=== PATIENT | female | born 1985 | race Caucasian/White ===

== ENCOUNTER → 2017-01-08 | Outpatient (CLI) | payer BC ==
[~2017-01-08] MED LIST: ACET-1311 PO; BCPILLS PO; PRENTAB26 PO
--- NOTE | 2017-01-08 15:34 | DIAGNOSTIC IMAGING REPORT ---
KUB CLINICAL HISTORY: NEPHROLITHIASIS nephrocalcinosis COMPARISON STUDY: 05/31/2015 FINDINGS: Kidneys are of severe by overlying fecal material. Bowel pattern is nonobstructive. Possible punctate calcifications appear pole left kidney. IMPRESSION: Near nonvisualization of the kidneys due to overlying bowel content. 2. Punctate calcification overlying superior pole left kidney. 3. Otherwise negative study Electronically signed by: Rajan Rodriguez M.D. 01/08/2017 3:33 PM Dictated Date/Time: 01/08/2017 3:32 PM
== END | disposition home or self-care (01) ==
LOC: C.RADBC 15:09
PROVIDERS: ATTEND Nurse Practitioner Family
DX: N20.0 Calculus of kidney (principal)

== ENCOUNTER 2017-01-27 15:55 | Emergency (ER) | payer BC ==
[~2017-01-27] VITALS: Ht 162.6 cm; Wt 62.4 kg
[~2017-01-27 15:55] MED LIST changes: -ACET-1311 PO; -BCPILLS PO
[2017-01-27 15:59] VITALS: TEMP 36.6; Ht 162.6 cm; Wt 62.4 kg
[2017-01-27] MEDS ORDERED: BCPILLS PO (16:06)
[2017-01-27] MEDS ORDERED: ACET-1311 PO (16:06)
[2017-01-27] MEDS ORDERED: LORAZEPAM 2 MG/ML 1 ML VIAL IV STA (16:25)
[2017-01-27] MEDS ORDERED: SODIUM CHLORIDE 0.9% 1000ML 1,000 ML IV ONE (16:30)
[2017-01-27 16:44] LABS: BASO % 0.3 %; BASO ABS # 0.02 K/uL (0-0.2); COMPLETE YES; EOS % 1.2 %; HEMATOCRIT 47.9 % (37-47); IG% 0.2 %; LYMPH % 31.8 %; LYMPH ABS # 1.88 K/uL (1.2-3.4); MEAN CORPUSCULAR HGB CONC 34.4 g/dl (32-36); MONO % 7.3 %; NEUT % 59.2 %; PLATELET COUNT 325 K/uL (130-400); RED BLOOD COUNT 5.32 M/uL (4.2-5.4); WHITE BLOOD COUNT 5.92 K/uL (4.8-10.8)
[2017-01-27 17:00] LABS: BUN/CREATININE RATIO 15.2 (10-20); CALCIUM 9.2 mg/dl (8.5-10.1); CREATININE 0.9 mg/dl (0.60-1.20); MAGNESIUM 2.2 mg/dl (1.8-2.4); POTASSIUM 3.9 mmol/L (3.5-5.1)
[2017-01-27 17:09] LABS: URINE APPEARANCE CLEAR (CLEAR); URINE BILIRUBIN NEG (NEG); URINE COLOR YELLOW; URINE NITRITE NEG (NEG); URINE SPECIFIC GRAVITY 1.025 (1.000-1.030); UROBILINOGEN NEG (NEG); ZZUR CULT IF INDIC CLEAN CATCH NO
[2017-01-27 17:10] LABS: ALB/GLOB RATIO 1.1 (0.9-2); THYROID STIMULATING HORMONE 2.26 uIu/ml (0.300-4.500)
[2017-01-27 17:13] LABS: MANUAL MICROSCOPIC REQUIRED? NO; REVIEW REQ? NO
--- NOTE | 2017-01-27 17:50 | DIAGNOSTIC IMAGING REPORT ---
MRA OF THE INTRACRANIAL CIRCULATION WITHOUT CONTRAST CLINICAL HISTORY: Atypical migraine. Neurologic symptoms. COMPARISON STUDY: None. TECHNIQUE: Utilizing a 1.5 Miriam magnet and 3-D [id number] technique, unenhanced MRA of the intracranial circulation was obtained. FINDINGS: The bilateral M1, M2, A1 and A2 segments are patent. There is no abrupt vessel cut off. The posterior circulation is intact. There is no intracranial aneurysm. No significant stenosis is identified within the intracranial vessels. IMPRESSION: Normal MRA of the intracranial circulation. Electronically signed by: Denis Ochoa M.D. 01/27/2017 5:49 PM Dictated Date/Time: 01/27/2017 5:47 PM
[2017-01-27] MEDS ORDERED: GADAVIST IV PRN (18:00)
[2017-01-27 18:11] LABS: LYME DISEASE AB IGG NEG (NEG); LYME DISEASE AB IGM NEG (NEG)
--- NOTE | 2017-01-27 18:31 | DIAGNOSTIC IMAGING REPORT ---
MRI OF THE BRAIN WITHOUT AND WITH IV CONTRAST CLINICAL HISTORY: Atypical migraine. Neurologic symptoms. COMPARISON STUDY: No previous studies for comparison. TECHNIQUE: Utilizing a 1.5 Miriam magnet and dedicated coil, multiplanar, multiecho imaging of the brain was performed pre and postcontrast administration. IV administration of 6 mL of Gadavist contrast was uneventful. FINDINGS: This exam is mildly compromised by motion artifact. There are no areas of restricted diffusion. No acute intracranial hemorrhage, midline shift or mass effect is present. Brain volume is normal. Ventricular system is normal. Basilar cisterns are patent. There are no extra-axial collections. Flow-voids for the major intracranial vessels are present. There are no intracranial masses or areas of pathologic enhancement. No areas of signal abnormality are identified. Calvarial signal is maintained. Orbits are unremarkable. There is minimal mucosal thickening of the ethmoid sinuses. There is no fluid within the mastoid air cells. IMPRESSION: Normal MRI of the brain. Electronically signed by: Denis Ochoa M.D. 01/27/2017 6:29 PM Dictated Date/Time: 01/27/2017 6:14 PM
[2017-01-27 19:07] VITALS: BP 103/65; PULSE 91; O2SAT 98
--- NOTE | 2017-01-27 19:35 | EMERGENCY ROOM VISIT NOTE ---
History First contact with patient: 16:06 Chief Complaint: HEADACHE Stated Complaint: PAIN IN THE BACK OF THE HEAD; FAINTING SPELLS History of Present Illness The patient is a 32 year old female who presents to the Emergency Room with complaints of episodes of posterior head pain and near-syncope off-and-on for the past 3 months. The patient is usually healthy without chronic medical disease. She is very active and works out several days a week and is a schoolteacher by profession. The patient describes on pulsatile posterior head pain radiating to the top of her head. These episodes often last for a few moments before resolving, but has been increasing in frequency. She has had a few episodes where she has nonspecific numbness and tingling into her hands. There have not been vision changes. Additionally the patient states that she has had near syncopal episodes, and at times will feel like she is "drunk". These episodes do not appear to improve or worsen with time of day, food, or activity. She never has chest pain, chest tightness, shortness of breath, or palpitations with this. She reports a very old history of epilepsy that resolved before the age of 10. She has not had any neurologic issues since that time. The patient rates her current discomfort a 4/10. She was able to exercise vigorously this morning without difficulty, but began to have another episode about 2 hours prior to arrival. Review of Systems More than 10 systems were reviewed and otherwise negative with the exception of history of present illness. Past Medical/Surgical History Surgical Problems: (1) H/O wisdom tooth extraction Family History Cancer Diabetes mellitus Hypertension Lung disease Seizures Social History Smoking Status: Never Smoker Marital Status: Housing Status: lives with family Occupation Status: employed Current/Historical Medications Scheduled Control Pills ( Control Pills), 1 TAB PO DAILY Scheduled PRN Acetaminophen (Tylenol), 650 MG PO Q6 PRN for Headache Allergies Coded Allergies: Ibuprofen (Verified Allergy, Severe, SWELLING/HIVES, 01/27/17) Physical Exam Vital Signs Date Time Temp Pulse Resp B/P Pulse Ox O2 Delivery O2 Flow Rate FiO2 01/27/17 19:07 91 16 103/65 98 Room Air 01/27/17 18:12 97 18 125/88 99 Room Air 01/27/17 15:59 36.6 93 18 136/84 98 Room Air Pain Rating (0-10): 5.0 Physical Exam VITALS: Vitals are noted on the nurse's note and reviewed by myself. Vital signs stable. GENERAL: Well-developed, well-nourished, white female, who is in no acute distress and resting comfortably. Patient is cooperative with the examination. HEAD: Normocephalic atraumatic. EARS: External ear normal. External auditory canals clear, tympanic membranes pearly beard without erythema or effusion bilaterally. EYES: Pupils equal round and reactive to light and accommodation. Conjunctivae without injection, sclerae without icterus. Extraocular movements intact. NOSE: Patent, turbinates without inflammation or discharge. MOUTH: Mucous membranes moist. Tonsils are not enlarged. Pharynx without erythema, blood, or exudate. Uvula midline. Airway patent. NECK: Supple without nuchal rigidity. No lymphadenopathy. No thyromegaly. Cervical spine is nontender. HEART: Regular rate and rhythm without murmurs gallops or rubs. LUNGS: Clear to auscultation bilaterally without wheezes, rales or rhonchi. No retractions or accessory muscle use. ABDOMEN: Positive normal bowel sounds x 4. Soft, nontender, without masses or organomegaly. No guarding or rebound tenderness. MUSCULOSKELETAL: No muscle atrophy, erythema, or edema noted. Full range of motion without joint tenderness in all extremities. No tenderness to palpation. Normal gait. Strength 5/5 throughout. NEURO: Patient was alert and oriented to person place and time. CN II through XII grossly intact. Deep tendon reflexes 2+ throughout. No focal neurological deficits SKIN: The skin was without rashes, erythema, edema, or bruising. Capillary reflex less than 2 seconds. Medical Decision & Procedures ER Provider Diagnostic Interpretation: MRI OF THE BRAIN WITHOUT AND WITH IV CONTRAST CLINICAL HISTORY: Atypical migraine. Neurologic symptoms. COMPARISON STUDY: No previous studies for comparison. TECHNIQUE: Utilizing a 1.5 Miriam magnet and dedicated coil, multiplanar, multiecho imaging of the brain was performed pre and postcontrast administration. IV administration of 6 mL of Gadavist contrast was uneventful. FINDINGS: This exam is mildly compromised by motion artifact. There are no areas of restricted diffusion. No acute intracranial hemorrhage, midline shift or mass effect is present. Brain volume is normal. Ventricular system is normal. Basilar cisterns are patent. There are no extra-axial collections. Flow-voids for the major intracranial vessels are present. There are no intracranial masses or areas of pathologic enhancement. No areas of signal abnormality are identified. Calvarial signal is maintained. Orbits are unremarkable. There is minimal mucosal thickening of the ethmoid sinuses. There is no fluid within the mastoid air cells. IMPRESSION: Normal MRI of the brain. MRA OF THE INTRACRANIAL CIRCULATION WITHOUT CONTRAST CLINICAL HISTORY: Atypical migraine. Neurologic symptoms. COMPARISON STUDY: None. TECHNIQUE: Utilizing a 1.5 Miriam magnet and 3-D [id number] technique, unenhanced MRA of the intracranial circulation was obtained. FINDINGS: The bilateral M1, M2, A1 and A2 segments are patent. There is no abrupt vessel cut off. The posterior circulation is intact. There is no intracranial aneurysm. No significant stenosis is identified within the intracranial vessels. IMPRESSION: Normal MRA of the intracranial circulation. Laboratory Results 01/27/17 16:35 Red Blood Count 5.32, Mean Corpuscular Volume 90.0, Mean Corpuscular Hemoglobin 31.0, Mean Corpuscular Hemoglobin Concent 34.4, Mean Platelet Volume 10.0, Neutrophils (%) (Auto) 59.2, Lymphocytes (%) (Auto) 31.8, Monocytes (%) (Auto) 7.3, Eosinophils (%) (Auto) 1.2, Basophils (%) (Auto) 0.3, Neutrophils # (Auto) 3.51, Lymphocytes # (Auto) 1.88, Monocytes # (Auto) 0.43, Eosinophils # (Auto) 0.07, Basophils # (Auto) 0.02 01/27/17 16:35 Test 01/27/17 16:35 01/27/17 16:40 White Blood Count 5.92 K/uL (4.8-10.8) Red Blood Count 5.32 M/uL (4.2-5.4) Hemoglobin 16.5 g/dL (12.0-16.0) Hematocrit 47.9 % (37-47) Mean Corpuscular Volume 90.0 fL (80-100) Mean Corpuscular Hemoglobin 31.0 pg (25-34) Mean Corpuscular Hemoglobin Concent 34.4 g/dl (32-36) Platelet Count 325 K/uL (130-400) Mean Platelet Volume 10.0 fL (7.4-10.4) Neutrophils (%) (Auto) 59.2 % Lymphocytes (%) (Auto) 31.8 % Monocytes (%) (Auto) 7.3 % Eosinophils (%) (Auto) 1.2 % Basophils (%) (Auto) 0.3 % Neutrophils # (Auto) 3.51 K/uL (1.4-6.5) Lymphocytes # (Auto) 1.88 K/uL (1.2-3.4) Monocytes # (Auto) 0.43 K/uL (0.11-0.59) Eosinophils # (Auto) 0.07 K/uL (0-0.5) Basophils # (Auto) 0.02 K/uL (0-0.2) RDW Standard Deviation 39.6 fL (36.4-46.3) RDW Coefficient of Variation 12.1 % (11.5-14.5) Immature Granulocyte % (Auto) 0.2 % Immature Granulocyte # (Auto) 0.01 K/uL (0.00-0.02) Anion Gap 5.0 mmol/L (3-11) Est Creatinine Clear Calc Drug Dose 77.5 ml/min Estimated GFR () 98.1 Estimated GFR (Non- 84.6 BUN/Creatinine Ratio 15.2 (10-20) Calcium Level 9.2 mg/dl (8.5-10.1) Magnesium Level 2.2 mg/dl (1.8-2.4) Total Bilirubin 0.5 mg/dl (0.2-1) Aspartate Amino Transf (AST/SGOT) 14 U/L (15-37) Alanine Aminotransferase (ALT/SGPT) 17 U/L (12-78) Alkaline Phosphatase 63 U/L (45-117) Total Protein 8.1 gm/dl (6.4-8.2) Albumin 4.3 gm/dl (3.4-5.0) Globulin 3.8 gm/dl (2.5-4.0) Albumin/Globulin Ratio 1.1 (0.9-2) Thyroid Stimulating Hormone (TSH) 2.260 uIu/ml (0.300-4.500) Lyme Disease IgG Antibody NEG (NEG) Lyme Disease IgM Antibody NEG (NEG) Urine Color YELLOW Urine Appearance CLEAR (CLEAR) Urine pH 6.0 (4.5-7.5) Urine Specific [place] 1.025 (1.000-1.030) Urine Protein NEG (NEG) Urine Glucose (UA) NEG (NEG) Urine Ketones NEG (NEG) Urine Occult Blood NEG (NEG) Urine Nitrite NEG (NEG) Urine Bilirubin NEG (NEG) Urine Urobilinogen NEG (NEG) Urine Leukocyte Esterase NEG (NEG) Medications Administered Medications (Trade) Dose Ordered Sig/Dylan Route Start Time Stop Time Status Last Admin Dose Admin Sodium Chloride (Nss 1000ml) 1,000 ml @ 999 mls/hr Q1H1M ONCE IV 01/27/17 16:30 01/27/17 17:30 DC 01/27/17 16:30 999 MLS/HR Lorazepam (Ativan Inj) 1 mg NOW STAT IV 01/27/17 16:25 01/27/17 16:29 DC 01/27/17 17:13 1 MG ED Course Physical exam and history were performed. Nursing notes and EMR were reviewed. Patient appears to have vague headache and neurologic symptoms over the past 3 months. On examination the patient appears well without obvious findings. She is considered a reliable historian, and is quite concerned for her episodes. IV access was established and labs were obtained. The patient was hydrated with normal saline. Out of concern for possible intracranial abnormality MRI and MRA were felt necessary. The patient blood work is as above and was reviewed. She does not have a significantly elevated white blood cell count, gross anemia, bandemia, or significant electrolyte imbalance. Her TSH is euthyroid. Lyme screen is negative. The patient's MRI and MRA are both without acute findings and were read as normal by radiology. On reevaluation the patient continued to feel well and nontoxic. I had a lengthy discussion with her regarding her evaluation today. At this time the patient's symptoms seem to best correlate with an atypical migraine. She does not appear to have multiple sclerosis or infectious process such as Lyme disease causing her symptoms. She is without obvious aneurysm or bleed. The patient may need further neurology evaluation as an outpatient, but this can be best determined by her primary care physician. Recommended the patient take Tylenol if symptoms return. She should remain hydrated and watch for hypoglycemia. I do not suspect a distinct cardiac etiology for her symptoms as she is very active and is without chest discomfort. 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 Ultimately the patient was invited back to the ER with any new, worsening, or concerning symptoms. She was pleased with this plan and voiced understanding. She rated her discomfort a 0/10 at the time of departure. The chart was completed utilizing [employer] Speech Voice Recognition Software. Grammatical errors, random word insertions, pronoun errors, and incomplete sentences are an occasional consequence of this system due to software limitations, ambient noise, and hardware issues. Any formal questions or concerns about the content, text, or information contained within the body of this dictation should be directly addressed to the provider for clarification. . Medical Decision The differential diagnosis includes, but is not limited to: Demyelinating disease, cardiac process, acute intracranial bleed, meningitis, encephalitis, mass or mass effect, sinusitis, infection, tumor, headache, temporal arteritis and carbon monoxide exposure, and migraine. Impression Primary Impression: Atypical migraine Departure Information Dispostion Home / Self-Care Condition GOOD Forms HOME CARE DOCUMENTATION FORM, IMPORTANT VISIT INFORMATION Patient Instructions [facility] Additional Instructions You were seen and evaluated today on an emergency basis only. This is not a substitute for, or an effort to provide, complete comprehensive medical care. It is not possible to recognize and treat all injuries or illnesses in a single emergency department visit. For this reason it is recommended that you followup with your primary care physician this week for ongoing care and evaluation. Drink plenty fluids and remain well hydrated. You are welcome to return to the emergency department anytime with new, worsening, or concerning symptoms.
== END 2017-01-27 19:08 | disposition home or self-care (01) ==
LOC: C.EDB 15:57 → C.EDC 19:08
DX: G43.909 Migraine, unspecified, not intractable, without status migrainosus (principal); R55 Syncope and collapse

== ENCOUNTER → 2017-05-04 | Outpatient (CLI) | payer BC ==
[~2017-05-04] MED LIST changes: +ACET-1311 PO; +BCPILLS PO; -PRENTAB26 PO
[2017-05-04 12:14] LABS: HEMATOCRIT 44.8 % (37-47); MEAN CELL VOLUME 91.2 fL (80-100); MEAN CORPUSCULAR HEMOGLOBIN 30.3 pg (25-34); MEAN CORPUSCULAR HGB CONC 33.3 g/dl (32-36); MEAN PLATELET VOLUME 10.4 fL (7.4-10.4); PLATELET COUNT 267 K/uL (130-400); RED BLOOD COUNT 4.91 M/uL (4.2-5.4); WHITE BLOOD COUNT 5.81 K/uL (4.8-10.8)
[2017-05-04 12:45] LABS: PREG INTERNAL NEGATIVE QC NEG CLEAR BACKGROUND; PREG INTERNAL POSITIVE QC POS CONTROL LINE
== END | disposition home or self-care (01) ==
LOC: C.LAB1850 11:18
PROVIDERS: ATTEND Physician Assistant
DX: N93.8 Other specified abnormal uterine and vaginal bleeding (principal)

== ENCOUNTER → 2017-10-25 | Outpatient (CLI) | payer BC | END | disposition home or self-care (01) | LOC: C.PAPS 11:24 | PROVIDERS: ATTEND Physician Assistant | DX: Z01.419 Encounter for gynecological examination (general) (routine) without abnormal findings (principal) ==

== ENCOUNTER → 2018-05-20 | Outpatient (CLI) | payer BC | END | disposition home or self-care (01) | LOC: C.LABSPEC 16:20 | PROVIDERS: ATTEND Obstetrics & Gynecology | DX: Z34.81 Encounter for supervision of other normal pregnancy, first trimester (principal) ==

== ENCOUNTER → 2018-06-03 | Outpatient (CLI) | payer BC ==
[2018-06-03 16:04] LABS: BASO % 0.4 %; BASO ABS # 0.02 K/uL (0-0.2); EOS % 2.3 %; EOS ABS # 0.13 K/uL (0-0.5); HEMATOCRIT 39.8 % (37-47); HEMOGLOBIN 14.1 g/dL (12.0-16.0); IG# 0.01 K/uL (0.00-0.02); LYMPH % 30.4 %; LYMPH ABS # 1.72 K/uL (1.2-3.4); MEAN CELL VOLUME 89.2 fL (80-100); MEAN CORPUSCULAR HEMOGLOBIN 31.6 pg (25-34); MEAN CORPUSCULAR HGB CONC 35.4 g/dl (32-36); MEAN PLATELET VOLUME 10.5 fL (7.4-10.4); MONO % 7.3 %; MONO ABS # 0.41 K/uL (0.11-0.59); NEUT % 59.4 %; NEUT ABS # 3.36 K/uL (1.4-6.5); PLATELET COUNT 247 K/uL (130-400); RED CELL DISTRIBUTION WIDTH CV 11.9 % (11.5-14.5); RED CELL DISTRIBUTION WIDTH SD 38.7 fL (36.4-46.3); WHITE BLOOD COUNT 5.65 K/uL (4.8-10.8)
== END | disposition home or self-care (01) ==
LOC: C.LAB1850 15:12
PROVIDERS: ATTEND Obstetrics & Gynecology
DX: Z34.81 Encounter for supervision of other normal pregnancy, first trimester (principal)

== ENCOUNTER 2019-01-10 07:57 | Inpatient (IN) ==
[2019-01-10] MEDS ORDERED: LACTATED RINGER'S 1,000 ML IV PRN ×2 (12:36→15:12)
[2019-01-10] MEDS ORDERED: OXYTOCIN 30 UNITS/500 ML BAG IV PRN (12:36)
[2019-01-10] MEDS ORDERED: PENICILLIN G POTASSIUM 6 MU in DEXTROSE 5% 250 ML IV STA (12:45)
[2019-01-10] MEDS: LACTATED RINGER'S 1,000 ML IV SCH ×3 (12:51→17:30)
[2019-01-10 12:57] LABS: Hemoglobin 13.9 g/dL (12.0-16.0); Mean Corpuscular Volume 92.1 fL (80-100); Mean Platelet Volume 11.4 fL (7.4-10.4); Platelet Count 202 K/uL (130-400); RDW Coefficient of Variation 13.7 % (11.5-14.5); RDW Standard Deviation 45.7 fL (36.4-46.3); Red Blood Count 4.45 M/uL (4.2-5.4)
[2019-01-10 13:01] LABS: Mean Corpuscular Hgb Conc 33.9 g/dL (32-36)
[2019-01-10] MEDS ORDERED: BUPIVACAINE 0.25% 30 ML VIAL ONE (13:42)
[2019-01-10] MEDS ORDERED: ePHEDrine sulfate 50 MG/ML AMP ONE (13:42)
[2019-01-10] MEDS ORDERED: fentaNYL citrate 100 MCG/2 ML VIAL ONE (13:42)
[2019-01-10] MEDS ORDERED: fentaNYL 2MCG/ML ROPIV 1.25MG/ML 100 ML BAG EPI ONE (13:43)
--- NOTE | 2019-01-10 14:37 | Anesthesiology Consultation ---
Date of Service January 10, 2019 Assessment & Plan Chart Review Chart Review: Patient NOT seen in Pre Admission Testing and Acceptable Risk for Labor Epidural Consults Requested none ASA ASA2 Proposed Anesthesia Anesthesia Type: Labor Epidural Risk / Benefits Reviewed With: PT / POA / Parent / Guardian, Accepts Plan and Informed Consent Obtained NPO Date Last Intake of Fluids: 01/10/19 Time Last Intake of Fluids: 15:00 Date Last Intake of Solids: 01/09/19 Time Last Intake of Solids: 18:30 History Height/Weight Height: 5 ft 4 in Weight: 72.575 kg Allergies Allergy/AdvReac Type Severity Reaction Status Date / Time ibuprofen Allergy Severe SWELLING/HI Verified 01/27/17 15:59 VES Medications Home Medications Medication Instructions Recorded Confirmed Last Taken vit-iron fum-folic ac 1 tab PO DAILY 01/10/19 01/10/19 01/09/19 [ Vitamin] 1999 Active Medications Generic Name Dose Route Start Last Admin Trade Name Freq PRN Reason Stop Dose Admin Lactated Ringer's 1,000 mls @ 125 mls/hr 01/10/19 12:45 01/10/19 13:31 Lr IV 01/12/19 12:44 125 mls/hr .Q8H MAURISIO Administration Past Medical History Medical History Nephrolithiasis Past Family History Family History Uncle Diabetes Father Hypertension Aunt Cancer Grandfather (Maternal) Cancer Past Anesthesia History No Hx of Anesthesia Complications History of PONV No Motion Sickness Screening History of Motion Sickness: Yes Social History Smoking Status: Never smoker Do You Dip or Chew Tobacco: No Hx Alcohol Use: No Exercise / Class Metabolic Activity III < 4 Walking/Shop/Light housework Negative for chest pain or shortness of breath. Physical Exam Vital Signs Last Vital Signs Temp 36.8 C 01/10/19 11:48 Pulse 67 01/10/19 11:48 Resp 20 01/10/19 11:48 BP 107/67 01/10/19 11:48 Constitutional not obese (Gravid uterus) ENMT Mouth: no TMJ abnormality and oral opening not small Thyromental Distance: > or= 3.5 Finger Breadths Mallampati Class: III Neck normal visual inspection; neck extension not limited Respiratory normal respiratory effort Auscultation: lungs clear to auscultation bilaterally Cardiovascular Rate/Rhythm: regular rate and regular rhythm Heart Sounds: no murmur Psychiatric A+Ox3, euthymic affect Orientation: alert and oriented x 3 Testing Laboratory Results 01/10/19 12:45
--- NOTE | 2019-01-10 14:41 | History & Physical Report ---
Date of Service January 10, 2019 Assessment & Plan (1) Normal labor: -Fetus currently category 1 tracing. We will continue to monitor. -Currently 2 cm dilated. We will start oxytocin per regular protocol. -Vitals currently within normal limits. We will continue to monitor. - hemorrhage risk considered at low risk. We will collect a CBC, type and screen and will continue to monitor. -Plan for . O+, Rubella Immune, GBS+ History of Present Illness Primary Care Provider: Maggie Mesa DO DATE OF ADMISSION: 01/10/2019 REASON FOR ADMISSION: Labor. BRIEF HISTORY: 33 y/o , currently at 40 weeks 4 days gestational age with FREDERICK of 01/06/2019 by LMP consistent with first trimester ultrasound. At time of admission, the patient was denying any regular contractions, vaginal bleeding, leakage of fluid, and reported normal movement. COURSE: The patient presented for care at approximately 9 weeks' gestational age. She has been normotensive throughout. She has trace proteinuria (Oct 2018), negative glucosuria, total weight gain for the is approximately 35 pounds. COMPLICATIONS: None. LABS: Blood type O positive, antibody screen negative, RPR nonreactive, rubella immune, hep B surface antigen negative, HIV negative, chlamydia negative, gonorrhea negative, CF declined. Anatomy scan normal and complete. Hep group B strep positive. GYNECOLOGIC HISTORY: LMP 04/01/2018. The patient reports regular 28 day cycles with normal duration and quantity of menses. Denies any history of sexually transmitted infections or abnormal PAPs. PAST MEDICAL HISTORY: Epilepsy age 10. PAST SURGICAL HISTORY: D and E in 2012, Lithotripsy, [place]eth. MEDICATIONS: 1. vitamin ALLERGIES: NKDA SOCIAL HISTORY: The patient denies tobacco, alcohol use, or illicit drug use. FAMILY HISTORY: Maternal Uncle, PGF: DM. Mother: HTN. Father: HTN, HLD. Maternal Aunt: Ovarian Ca. Allergies Allergy/AdvReac Type Severity Reaction Status Date / Time ibuprofen Allergy Severe SWELLING/HI Verified 01/27/17 15:59 VES Home Medications Home Medications Medication Instructions Recorded Confirmed Type vit-iron fum-folic ac 1 tab PO DAILY 01/10/19 01/10/19 History [ Vitamin] Past Med/Surg History Medical History Nephrolithiasis Family History Uncle Diabetes Father Hypertension Aunt Cancer Grandfather (Maternal) Cancer Social History Preferred Language: French Communication Ability: Effective Beliefs That Will Affect Care: None marital status: Current Living Situation: Family Other Information That Helps Us Care for You: No Feels Safe at Home: Yes Smoking Status: Never smoker Hx Alcohol Use: No Review of Systems All systems reviewed & are unremarkable except as noted in HPI & below Physical Exam Vital Signs (Past 24 Hours): Last Vital Signs Temp 36.8 C 01/10/19 11:48 Pulse 67 01/10/19 11:48 Resp 20 01/10/19 11:48 BP 107/67 01/10/19 11:48 Constitutional: WD/WN, vitals as above Eyes: PERRL, conjunctivae normal, anicteric sclerae ENMT: external ear and nose normal, oropharynx normal Respiratory: normal respiratory effort, lungs clear to auscultation Cardiovascular: RRR, no murmur, no edema Gastrointestinal (Abdomen): Soft, nontender, gravid Skin: no rashes, warm and dry Psychiatric: A+Ox3, euthymic affect Genitourinary: 2 cm dilated, -1 station Results & Data Laboratory Results Laboratory Results - last 24 hr 01/10/19 12:45 WBC 9.60 RBC 4.45 Hgb 13.9 Hct 41.0 MCV 92.1 MCH 31.2 MCHC 33.9 RDW Std Deviation 45.7 RDW Coeff of Mike 13.7 Plt Count 202 MPV 11.4 H Medications Administered Current Inpatient Medications Lactated Ringer's (Lr) 1,000 mls @ 999 mls/hr IV .Q1H1M PRN PRN Reason: (Pre-Anesthesia) Stop: 02/09/19 12:35 Lactated Ringer's (Lr) 1,000 mls @ 125 mls/hr IV .Q8H MAURISIO Stop: 01/12/19 12:44 Last Admin: 01/10/19 13:31 Dose: 125 mls/hr Documented by: Oxytocin (Pitocin) 30 units in 500 mls @ 333.333 mls/hr IV .Q1H30M PRN; Protocol PRN Reason: Bleeding Control Stop: 02/09/19 12:35 Penicillin G Potassium 3 mu/ (Dextrose) 106 mls @ 100 mls/hr IV Q4H PRN PRN Reason: Give until delivery Stop: 01/20/19 16:44 Code Status & VTE Plan Code Status FULL Resident Activity Tracking Resident Involvement: Resident Care Provided Care Provided: OB Delivery
[2019-01-10] MEDS ORDERED: NALOXONE HCL 1 MG in SODIUM CHLORIDE 0.9% 1000ML 1,000 ML IV PRN (15:12)
[2019-01-10] MEDS ORDERED: ePHEDrine sulfate 50 MG/ML AMP IV PRN (15:12)
[2019-01-10] MEDS ORDERED: fentaNYL 2MCG/ML ROPIV 1.25MG/ML 100 ML BAG EPI PRN (15:12)
[2019-01-10] MEDS ORDERED: DiphenhydrAMINE HCL 50 MG/ML VIAL IV PRN (15:12)
[2019-01-10] MEDS ORDERED: ONDANSETRON INJ 2 MG/ML 2 ML VIAL IV PRN (15:12)
[2019-01-10] MEDS ORDERED: NALOXONE HCL 0.4 MG/1 ML VIAL/CARP IV PRN (15:12)
[2019-01-10] MEDS ORDERED: NALBUPHINE HCL INJ 10 MG/ML AMP IV PRN (15:12)
[2019-01-10] MEDS ORDERED: PENICILLIN G POTASSIUM 3 MU in DEXTROSE 5% 100 ML IV PRN (16:45)
--- NOTE | 2019-01-10 17:30 | Labor Progress Brief Note ---
Date of Service January 10, 2019 Subjective Comfortable with epidural Assessment & Plan (1) Normal labor and delivery: Continue labor Physical Exam Vital Signs (Past 24 Hours): Last Vital Signs Temp 36.4 C L 01/10/19 15:15 Pulse 94 H 01/10/19 17:26 Resp 18 01/10/19 15:15 BP 145/77 H 01/10/19 17:22 Pulse Ox 100 01/10/19 17:26 Physical Exam: 8/100/+1 FHT Cat 1 [facility] Q2
[2019-01-10] MEDS ORDERED: BENZOCAINE 20% AER SPR 82.5 GM CAN EXT PRN (18:29)
[2019-01-10] MEDS ORDERED: IBUPROFEN 600 MG TAB PO PRN (18:29)
[2019-01-10] MEDS ORDERED: DIPHTHERIA/TETANUS/PERTUSSIS 0.5 ML SYR/VIAL IM ONE (18:29)
[2019-01-10] MEDS ORDERED: SUPERCREAM 0.870% 15 GM JAR EXT PRN (18:29)
[2019-01-10] MEDS ORDERED: OXYCODONE/ACETAMINOPHEN 5mg/325mg TAB PO PRN (18:29)
[2019-01-10] MEDS ORDERED: HYDROCORTISONE ACETATE 25 MG SUPP PR PRN (18:29)
[2019-01-10] MEDS ORDERED: BISACODYL 10 MG SUPP PR PRN (18:29)
--- NOTE | 2019-01-10 18:29 | Procedure Note ---
Vaginal Delivery Summary Date of Service January 10, 2019 Supervising Physician Co-Signing Physician Notes Zoie pushed to deliver a viable female in MELANY position with compound presentation of L arm around neck / fist near R cheek. The shoulders and body delivered with no difficulty. The cord was doubly clamped and cut. Infant was vigorous immediately upon delivery. A separation of perineal scar tissue, approximating a second degree tear but completely hemostatic, was repaired using 3-0 vicryl in running locked fashion. The placenta then delivered spontaneously and was intact with a 3VC. Lochia was minimal and fundus firm immediately after delivery.
--- NOTE | 2019-01-10 20:14 | Anesthesia Procedure Note ---
Date of Service January 10, 2019 Anesthesia Post Epidural Note Vital Signs Vital Signs: Temp Pulse Resp BP Pulse Ox 36.8 C 68 20 97/62 L 94 01/10/19 16:50 01/10/19 20:05 01/10/19 19:50 01/10/19 20:05 01/10/19 18:20 Pain Intensity Abdomen: Pain Intensity: 0 Notes Mental Status: alert / awake / arousable Patient Amnestic to Procedure: No Nausea / Vomiting: adequately controlled Pain: adequately controlled Airway Patency, RR, SpO2: stable & adequate BP & HR: stable & adequate Hydration State: stable & adequate Anesthetic Complications: no major complications apparent Epidural: Removed without complications and With tip intact Notes: Pt doing well, without complaints. Epidural site looks clean/dry/intact without signs of edema or erythema
[2019-01-10] MEDS: DOCUSATE SODIUM 100 MG CAP PO SCH (21:02)
[2019-01-11] MEDS: ACETAMINOPHEN 325 MG TAB PO PRN ×3 (02:32→15:32)
--- NOTE | 2019-01-11 06:35 | Obstetrical Progress Note ---
Date of Service <Santos Mosquera, - Last Filed: 01/11/19 06:35> January 11, 2019 Assessment & Plan <Santos Mosquera DO - Last Filed: 01/11/19 06:35> (1) (spontaneous vaginal delivery): -vital signs reviewed and WNL -last Hgb 13.9 -Blood type: O+, GBS+, Rubella Immune -pt doing well clinically -encourage ambulation, monitor and control pain with motrin tylenol, cont regular diet, monitor lochia Subjective <Santos Mosquera - Last Filed: 01/11/19 06:35> 33 y/o PPD1 found in bed this morning in NAD. Reports no acute overnight events. Pt states that she has no pain other than appropriate soreness. Tolerating PO intake without N/V. Able to ambulate without issue. She is bottle feeding. No issues with voiding, no BM yet. No other acute concerns or complaints. Review of Systems All systems reviewed & are unremarkable except as noted in HPI & below Physical Exam <Santos Mosquera, - Last Filed: 01/11/19 06:35> Vital Signs (Past 24 Hours) Last Vital Signs Temp 36.6 C 01/11/19 03:35 Pulse 47 L 01/11/19 03:35 Resp 18 01/11/19 03:35 BP 108/68 01/11/19 03:35 Pulse Ox 94 01/10/19 18:20 Constitutional WD/WN, vitals as above Eyes PERRL, conjunctivae normal, anicteric sclerae ENMT external ear and nose normal, oropharynx normal Respiratory normal respiratory effort, lungs clear to auscultation Cardiovascular RRR, no murmur, no edema Gastrointestinal (Abdomen) mild abd tenderness Skin no rashes, warm and dry Psychiatric A+Ox3, euthymic affect Lymphatic no LE swelling, no calf tenderness Results & Data <Santos Mosquera - Last Filed: 01/11/19 06:35> Laboratory Results Laboratory Results - last 24 hr 01/10/19 12:45 WBC 9.60 RBC 4.45 Hgb 13.9 Hct 41.0 MCV 92.1 MCH 31.2 MCHC 33.9 RDW Std Deviation 45.7 RDW Coeff of Mike 13.7 Plt Count 202 MPV 11.4 H Medications Administered Current Inpatient Medications Acetaminophen (Tylenol) 650 mg PO Q6H PRN PRN Reason: Pain/JENKINS/Fever Stop: 02/09/19 18:28 Last Admin: 01/11/19 02:32 Dose: 650 mg Documented by: Benzocaine (Dermoplast Pain Relieving [place]) 1 appln EXT PRN PRN PRN Reason: Perineal Discomfort Stop: 02/09/19 18:28 Last Admin: 01/11/19 02:31 Dose: 82.5 appln Documented by: Cocaine HCl (Supercream 0.870%) 1 gm EXT BID PRN PRN Reason: Hemorrhoidal Inflammation Stop: 01/24/19 18:28 Docusate Sodium (Colace) 100 mg PO BID MAURISIO Stop: 02/09/19 20:59 Last Admin: 01/10/19 21:02 Dose: 100 mg Documented by: Hydrocortisone (Anusol Hc) 25 mg NH BID PRN PRN Reason: Hemorrhoidal Inflammation Stop: 02/09/19 18:28 Lactated Ringer's (Lr) 1,000 mls @ 999 mls/hr IV .Q1H1M PRN PRN Reason: (Pre-Anesthesia) Stop: 02/09/19 12:35 Lactated Ringer's (Lr) 1,000 mls @ 125 mls/hr IV .Q8H MAURISIO Stop: 01/12/19 12:44 Last Infusion: 01/10/19 19:53 Dose: Infused Documented by: Oxytocin (Pitocin) 30 units in 500 mls @ 333.333 mls/hr IV .Q1H30M PRN; Protocol PRN Reason: Bleeding Control Stop: 02/09/19 12:35 Last Admin: 01/10/19 19:05 Dose: 20 units/hr, 333.3 mls/hr Documented by: Ibuprofen (Motrin) 600 mg PO Q4H PRN PRN Reason: Pain/JENKINS/Cramping/Fever Stop: 02/09/19 18:28 Oxycodone/Acetaminophen (Percocet 5mg/325mg) 1 tab PO Q4H PRN PRN Reason: Pain not relieved by... Stop: 01/24/19 18:28 Prenat Multivit/[place]/Iron/Folic Ac ( Vitamin) 1 tab PO QAM MAURISIO Stop: 02/10/19 08:59 <Marly Colón MD - Last Filed: 01/11/19 07:09> Co-Signing Physician Notes I have examined the patient and agree with the resident note above. Resident Activity Tracking <Santos Mosquera DO - Last Filed: 01/11/19 06:35> Resident Involvement: Resident Care Provided Care Provided: OB Delivery
[2019-01-11 07:05] LABS: Hematocrit (blood only) 34.4 % (37-47); Hemoglobin 11.4 g/dL (12.0-16.0); Mean Corpuscular Hgb Conc 33.1 g/dL (32-36); Mean Corpuscular Volume 91.7 fL (80-100); Mean Platelet Volume 11.5 fL (7.4-10.4); Platelet Count 177 K/uL (130-400); RDW Coefficient of Variation 13.8 % (11.5-14.5); Red Blood Count 3.75 M/uL (4.2-5.4); White Blood Count 11.47 K/uL (4.8-10.8)
[2019-01-11] MEDS: DOCUSATE SODIUM 100 MG CAP PO SCH ×2 (08:39→20:24)
[2019-01-11] MEDS: PRENATAL VITAMIN 1 TAB PO SCH (08:39)
[2019-01-11] MEDS ORDERED: BISACODYL 5 MG TABEC PO SCH (20:00)
[2019-01-12] MEDS: ACETAMINOPHEN 325 MG TAB PO PRN (01:01)
[2019-01-12] MEDS: DOCUSATE SODIUM 100 MG CAP PO SCH (09:01)
[2019-01-12] MEDS: PRENATAL VITAMIN 1 TAB PO SCH (09:01)
--- NOTE | 2019-01-12 09:39 | Obstetrical Progress Note ---
Date of Service January 12, 2019 Assessment & Plan (1) (spontaneous vaginal delivery): PPD#2 doing well. Would like to go home. Discharge instructions discussed. Followup 6w in office. Subjective PPD#2 doing well. No complaints. Ambulating, eating/drinking ok. Bottle feeding. No breast problems. Moderate lochia. Physical Exam Vital Signs (Past 24 Hours): Last Vital Signs Temp 36.6 C 01/12/19 07:45 Pulse 60 01/12/19 07:45 Resp 18 01/12/19 07:45 BP 112/73 01/12/19 07:45 Pulse Ox 100 01/12/19 07:45 Physical Exam: Gen: AAOx3 NAD CV: RRR L: CTAB Abd: soft, NTTP Ext: no edema
== END 2019-01-12 12:25 | disposition home or self-care (01) | DRG 806 ==
LOC: OPB 07:57 → 4S1 07:59 → 4S2 20:56